=== PATIENT | female | born 1985 | race Caucasian/White ===

== ENCOUNTER 2025-04-08 20:55 | Emergency (ER) | payer BC, SELFPAY ==
[2025-04-08] VITALS (8 sets, daily range): BP systolic 133–176; BP diastolic 81–89; PULSE 62–87; RESP 16–18; TEMP 36.4; O2SAT 96–97; BMI 48.7
--- NOTE | 2025-04-08 21:34 | ED.GENADULT ---
HPI - General Adult General Chief complaint: Chest Pain Stated complaint: Chest pain left side, Cough, shortness of breath Time Seen by Provider: 04/08/25 21:31 History of Present Illness HPI narrative: Pt reports chest pain, started all day today and couple days last week, cough for past 2 months. The chest pain won' t go away. Feels like a panic attack. Pain is located at left heart breast area. Pt has increased SOB when walking. Pt taken two Tylenol pills. No reported trauma. Heating pads help with the chest pain when placed on back . 40-year-old woman presenting to the emergency department with concern of left-sided chest pain. Has had cough for couple months. Reports that she typically gets bronchitis each February except for this year though colleague had at this last February she notes. Chest pain had been on and off over this last week but really settled in over the last day or to. There is a pleuritic nature. It is worse when she lays down. Does report a history of what sounds like a varicose vein that has been ultrasounded negative for clot in the right upper thigh. Experiences jacks for fits of coughing. No productive. It has been more short of breath walking lately. No unusual swelling or pain in legs. Later conversation reports the does struggle with some arthritis I think particularly in her knees. Question of some dietary triggers for this perhaps as well as hives. Frequently with chest symptoms. Related Data Home Medications ?Medication ?Instructions ?Recorded ?Confirmed No Known Home Medications 04/08/25 04/08/25 Allergies Allergy/AdvReac Type Severity Reaction Status Date / Time lidocaine Allergy Intermediate Hives Verified 04/08/25 21:09 Review of Systems Status of ROS: Reports: 6 or more systems reviewed and unremarkable except as noted in History and below Exam Narrative: Exam Narrative: Pleasant. NAD. Skin warm dry. Lower extremities are edema. Or weight. Chest is sore to palpation upper left breast area and the left upper mid axillary line. Lungs are clear. Does cough little bit with some with the respiratory effort. Heart in regular rate and rhythm without murmur rub or gallop. No supraclavicular crepitus. Reproducible pain also to palpation the left periscapular musculature Const: Vital Signs, click to edit/add: Vital Signs - 24 hr 04/08/25 21:01 04/08/25 22:26 04/08/25 22:30 Temperature 97.5 F L Pulse Rate 62 66 Pulse Rate [Left P ulse Oximeter] 87 Respiratory Rate 18 Blood Pressure Blood Pressure [Ri ght Forearm] 176/89 H Pulse Oximetry 97 96 97 Oxygen Delivery Me thod Room Air 04/08/25 22:31 04/08/25 22:32 04/08/25 22:45 Temperature Pulse Rate 67 72 69 Pulse Rate [Left P ulse Oximeter] Respiratory Rate Blood Pressure 140/88 H Blood Pressure [Ri ght Forearm] Pulse Oximetry 97 96 97 Oxygen Delivery Me thod 04/08/25 22:47 04/08/25 23:34 Temperature Pulse Rate 67 Pulse Rate [Left P ulse Oximeter] Respiratory Rate 16 Blood Pressure 133/82 139/81 Blood Pressure [Ri ght Forearm] Pulse Oximetry 97 Oxygen Delivery Me thod Documenting provider has reviewed patient's vital signs: yes Course Vital Signs Vital signs: Initial Vital Signs Temperature 97.5 F L 04/08/25 21:01 Temperature Source Temporal Artery Scan 04/08/25 21:01 Pulse Rate 87 04/08/25 21:01 Pulse Rhythm Regular 04/08/25 21:01 Respiratory Rate 18 04/08/25 21:01 Blood Pressure 176/89 H 04/08/25 21:01 Blood Pressure Mean 118 H 04/08/25 21:01 Blood Pressure Position Sitting 04/08/25 21:01 Pulse Oximetry 97 04/08/25 21:01 Oxygen Delivery Method Room Air 04/08/25 21:01 Vital Signs Temperature 97.5 F L 04/08/25 21:01 Pulse Rate 87 04/08/25 21:01 Respiratory Rate 18 04/08/25 21:01 Blood Pressure 176/89 H 04/08/25 21:01 Pulse Oximetry 97 04/08/25 21:01 Oxygen Delivery Method Room Air 04/08/25 21:01 Temperature 97.5 F L 04/08/25 21:01 Pulse Rate 67 04/08/25 22:47 Respiratory Rate 16 04/08/25 22:47 Blood Pressure 139/81 04/08/25 23:34 Pulse Oximetry 97 04/08/25 22:47 Oxygen Delivery Method Room Air 04/08/25 21:01 Medications Administered Medications: Discontinued Medications Generic Name Dose Route Start Last Admin Trade Name Freq PRN Reason Stop Dose Admin Ketorolac Tromethamine 30 mg 04/08/25 23:43 04/09/25 00:01 Ketorolac 30 Mg/Ml Inj IVP 04/08/25 23:44 30 mg ONCE ONE Administration Medical Decision Making MDM Narrative Medical decision making narrative: No evidence of pericarditis in EKG. Differential also includes pneumonia, pneumothorax, pulmonary embolus, favor costochondritis and/or pleuritis. Doubtful cardiac event. Does not appear to have any arrhythmia. Will monitor. Chest x-ray independently reviewed by me looks to be WNL. Labs are reassuring with D-dimer elevated out of baseline only by 100th. Also essentially normal white count and normal CRP. No events on cardiac monitoring during time in the emergency department. Some improvement I think with ketorolac. Reassuring also I think is reproducibility to palpation of chest wall/back. See patient discharge plan for further discussion Stay well-hydrated Return for increasing and persistent chest pain; especially worsening and persistent shortness of breath. Prescribing prednisone from [facility]. Can be stimulating. Consider keeping a diet diary/journal of everything you eat and drink for a few weeks and seeing if this correlates with a variety of symptoms that you mention today. Perhaps more extensive allergy testing would be helpful. Please be seen if not improved in a week. Giving a handout on stretches for your upper back that might be beneficial. Lab Data Lab results reviewed: Yes I reviewed the patient's lab results Labs: Lab Results 04/08/25 04/08/25 04/08/25 Range/Units 22:20 22:24 22:30 WBC 11.22 H (4.50-11.00) K/uL RBC 4.12 (4.00-5.20) m/uL Hgb 10.2 L (12.0-16.0) gm/dL Hct 33.1 (33.0-51.0) % MCV 80 (80-100) fL MCH 25 L (26-34) pg MCHC 31 L (32-36) gm/dL RDW Coeff of Karl 15.6 H (11.5-15.5) % Plt Count 312 (140-440) K/uL Neut % (Auto) 69.5 (42.0-72.0) % Lymph % (Auto) 22.6 (20-44) % [place] % (Auto) 6.4 (0.0-11.0) % Eos % (Auto) 1.0 (0.0-7.0) % Baso % (Auto) 0.3 (0.0-3.0) % Neut # (Auto) 7.80 H (1.7-7.0) K/uL Lymph # (Auto) 2.50 (0.90-2.90) K/uL [place] # (Auto) 0.70 (0.00-0.90) K/UL Eos # (Auto) 0.10 (0.00-0.50) K/uL Baso # (Auto) 0.00 (0.00-0.30) K/uL Abs Immat Gran (auto) 0.00 (0.00-0.30) K/uL Imm/Tot Granulo (auto) 0.2 % D-Dimer Quant (PE/DVT) 0.51 H (0.00-0.50) ug/ml Sodium 138 (135-149) mmol/L Potassium 4.0 (3.6-5.1) mmol/L Chloride 108 (96-114) mmol/L Carbon Dioxide 25 (20-32) mmol/L Anion Gap 5 L (7-15) mEq/L BUN 17 (5-24) mg/dL Creatinine 0.9 (0.5-1.5) mg/dL Estimated Creat Clear 79.99 Estimated GFR 82 ml/min Glucose 99 (60-115) mg/dL Calcium 8.6 (8.4-10.6) mg/dL Troponin I < 0.01 (0.01-0.04) ng/mL NT-Pro-B Natriuret Pep 76 (See Note) pg/mL POC Troponin I 0.01 (0.01-0.04) ng/ml ECG Data Attestation: I personally reviewed and interpreted this ECG as follows: (Normal sinus rhythm at a rate of 72. No apparent ischemic changes) Discharge Plan Discharge Clinical Impression: Chest wall pain, Pleuritis, Costochondritis, Cough Patient Disposition: Home, Self-Care Condition: Stable Additional Instructions: Stay well-hydrated Return for increasing and persistent chest pain; especially worsening and persistent shortness of breath. Prescribing prednisone from [facility]. Can be stimulating. Consider keeping a diet diary/journal of everything you eat and drink for a few weeks and seeing if this correlates with a variety of symptoms that you mention today. Perhaps more extensive allergy testing would be helpful. Please be seen if not improved in a week. Giving a handout on stretches for your upper back that might be beneficial. Prescriptions: No Action No Known Home Medications Follow Up/Referrals: Provider,Not a Local [Primary Care Provider, Family Practice] Stand Alone Forms: [facility] Info Instructions
--- NOTE | 2025-04-08 22:17 | CRLHL7_ITS ---
For Patients: As a result of the Century Cures Act, medical imaging exams and procedure reports are released immediately into your electronic medical record. You may view this report before your referring provider. If you have questions, please contact your health care provider. INDICATION: Two months of cough, left-sided chest pain. TECHNIQUE: Chest 2 views. COMPARISON: None. FINDINGS: Cardiovascular and mediastinum: Heart size and vasculature are normal in caliber and appearance. Lungs and pleural spaces: No focal consolidation, pleural effusion, or pneumothorax. Bones and soft tissues: Unremarkable for age. IMPRESSION: No evidence of an acute pulmonary process. Dictated by Mikel Dodge MD @ 04/08/2025 11:59:58 PM (Electronically Signed)
--- OUTSIDE RECORDS SUMMARY | 2025-04-08 22:41 | XMS_ITS | Clinical Summary ---
Author Organization [facility] Address [address] [place] [address] Care Team Providers Care Automobile Glass Technician Name Role Phone Elsewhere, Pcp Primary Care Provider Unavailabl e Source Comments Patient records contain information from all sites at [facility]. For routine questions regarding patient records, call [phone] during business hours, M-F 8:00 AM - 5:00 PM Central Time. Record requests for emergency care only can be directed to [phone] at any time.[facility] Allergies Active Allergy Reactions Criticality Noted Date Comments Lidocaine Hcl Hives (Reselect Reaction) 022 Medications * This document contains information received from the source organization and may not represent a complete record from that organization. benzonatate (Tessalon) 200 mg capsule Take 1 capsule (200 mg total) by mouth 3 (three) times a day as needed for cough. 30 capsule 11/02/2024 Active omeprazole (PriLOSEC) [address] capsule TAKE 1 CAPSULE(20 MG) BY MOUTH DAILY BEFORE MORNING MEAL. 30 capsule 11/30/2024 Active Active Problems Problem Noted Date Diagnosed Date Depression Anxiety 11/14/2014 Overview (02/15/2017): Depression Anxiety Polycystic Ovary Syndrome 11/14/2014 Immunizations Immunization Administration Dates Next Due Influenza, Injectable, Quadrivalent 07/31/2015 Td Preservative Free (TENIVAC, DECAVAC) 03/26/20 09 Tdap 05/30/2010 Family History Medical History Relation Name Comments Breast cancer Aunt Maternal and p aternal side. Ovarian cancer Aunt Two aunts wer e diagnosed at the age of 30 and currently 50 years of age Breast cancer Grandmother Paternal side. Ovarian cancer Grandmother Father side Relation Name Status Comments Aunt Grandmother Social History Tobacco Use Types Packs/Day Years Used Date Smoking Tobacco: Never Smokeless Tobacco: Never Tobacco Cessation:Counseling Given: Not Answered Alcohol Use Standard Drinks/Week Comments Not Currently 0 (1 standard drink = 0.6 oz pur e alcohol) rare Comments Unknown Sex and Gender Information Value Date Recorded Sex Assigned at Not on file Legal Sex Female 4:53 PM TERRITORY ACCOUNT MANAGER Gender Identity Not on file Sexual Orientation Not on file Last Filed Vital Signs Vital Sign Reading Time Taken Comments Blood Pressure 160/120 11/08/2024 7:25 PM TERRITORY ACCOUNT MANAGER patient talking to physician, patient is anxious Pulse 100 11/08/2024 7:20 PM TERRITORY ACCOUNT MANAGER Temperature 36.7 C (98.1 F) 11/08/2024 7:20 PM TERRITORY ACCOUNT MANAGER Respiratory Rate 16 11/08/2024 7:20 PM TERRITORY ACCOUNT MANAGER Oxygen Saturation 100% 11/08/2024 7:2 0 PM TERRITORY ACCOUNT MANAGER Inhaled Oxygen Concentration - - Weight 142 kg (312 lb) 11/02/2024 12:40 AM TERRITORY ACCOUNT MANAGER Height 173.7 cm (5' 8.4) 08/18/2022 8: 19 PM TERRITORY ACCOUNT MANAGER Body Mass Index 46.89 08/18/2022 8:19 PM TERRITORY ACCOUNT MANAGER Plan of Treatment Health Maintenance Due Date Last Done Comments HIV Screening 1985 Hepatitis C Screening 1985 Hepatitis B Vaccines (1 of 3 - 19+ 3-dose series) 2003 Cervical/Vaginal Cancer Screening 07/09/2019 07/09/2016 DTaP,Tdap,and Td Vaccines (2 - Td or Tdap) 05/30/2020 05/30/2010, 03/26/2009 COVID-19 Vaccine (1 - 2023-2 5 season) 2024 Depression Screening (Annual PHQ-2) 09/26/2024 Influenza Vaccine (#1) 2025 07/31/2015 Mammogram 08/07/2025 08/07/2024, 08/07/2024 Lipid (Cholesterol) Screening 08/12/2028, 07/09/2016 HPV Vaccines Aged Out No longer eligi ble based on patient's age to complete this topic IPV Vaccines Aged Out No longer eligi ble based on patient's age to complete this topic Pneumococcal vaccine (0-49 years) Aged Out No longer eligible b ased on patient's age to complete this topic Procedures Procedure Name Priority Date/Time Associated Diagnosis Comments LIPID PANEL, S Routine 07/09/2016 11:25 AM CDT PATHOLOGY AUTOMATIC TRANSMISSION MECHANIC CYTOLOGY Routine 07/09/2016 12:00 AM CDT from Last 3 Months or Most Recently Relevant to Health Maintenance Results * (ABNORMAL) Lipid Panel (07/09/2016 11:25 AM CDT) Cholesterol, Total 161 <=199 MGDL POWERCHART Comment: 2014 National Lipid Association recommendations for Total Cholesterol in adults ages 18 and up: Desirable <200 mg/dL Borderline high 200-239 mg/dL High 240 mg/dL 2014 National Lipid Association recommendations for Total Cholesterol in children ages 2 to 17. Acceptable <170 mg/dL Borderline High 170-199 mg/dL High 200 mg/dL HX HDL 52 >=50 MGDL POWERCHART Comment: 2014 National Lipid Association recommendations for HDL-C in adults ages 18 and up: Low <40 mg/dL (Men) Low <50 mg/dL (Women) 2014 National Lipid Association recommendations for HDL-C in children ages 2 to 17. Low <40 mg/dL Borderline Low 40-45 mg/dL Acceptable >45 mg/dL Triglycerides 191(H) <=149 MGDL POWERCHART Comment: 2014 National Lipid Association recommendations for Triglycerides in adults ages 18 and up: Normal <150 mg/dL Borderline High 150-199 mg/dL High 200-499 mg/dL Very High 500 mg/dL 2014 National Lipid Association recommendations for Triglycerides in children ages 2 to 9. Acceptable <75 mg/dL Borderline High 75-99 mg/dL High 100 mg/dL 2014 National Lipid Association recommendations for Triglycerides in children ages 10 to 17. Acceptable <90 mg/dL Borderline High 90-129 mg/dL High 130 mg/dL Trigs >400mg/dL: Triglycerides >400 mg/dL. Calculated LDL cholesterol is not valid. Non-HDL cholesterol may be used for risk assessment when triglycerides are >400mg/dL. Calculated LDL 71 <=129 MGDL POWERCHART Comment: 2014 National Lipid Association recommendations for LDL-C in adults ages 18 and up: Desirable <100 mg/dL Above desirable 100-129 mg/dL Borderline high 130-159 mg/dL High 160-189 mg/dL Very High 190 mg/dL 2014 National Lipid Association recommendations for LDL-C in children ages 2 to 17. Acceptable <110 mg/dL Borderline High 110-129mg/dL High 130 mg/dL LDL-C >190mg/dL: The markedly elevated LDL level is suggestive of a genetic condition such as familial hypercholesterolemia(FH) or familial defective apolipoprotein B-100 (FDB). Molecular genetic testing for FH and FDB is available through [facility] [email or web address]: FH/ADH Genetic Reflex Panel (test ADHP). Acquired (non-genetic) causes of markedly increased LDL cholesterol include cholestatic liver disease due to the presence of LpX. If a genetic form of hypercholesterolemia is suspected, family studies including biochemical testing for lipids (total cholesterol,triglycerides, LDL cholesterol and HDL cholesterol) are recommended. Please contact the laboratory at or the on-line test catalog at [facility] for information about how to order these tests or to speak with a genetic counselor. Further interpretation would require clinical information. Blood 07/09/2016 11:2 5 AM CDT Simeon Iqbal M.D. LAB BLOOD ADD-ON Final Result POWERCHART * Pathology AUTOMATIC TRANSMISSION MECHANIC Cytology (07/09/2016 12:00 AM CDT) 07/09/2016 Narrative [facility] LAB - 07/20/2016 9:03 AM CDT [facility] in [address] [place] [address] Patient Name: SHERRY RICE Collected: 07/09/2016 Address: City/State/Zip: [address] [place] [address] [address] [place], [place] [id number] Received: Reported: 07/12/2016 07/20/2016 Soc. Sec. #: /Age/Sex 1985 (Age: 31) F Physician(s): CELSO IQBAL MD Copy To: [facility] [id number] [address] [place] [address] [address] [place] [address] CYTOPATHOLOGY AUTOMATIC TRANSMISSION MECHANIC REPORT FINAL CYTOLOGIC DIAGNOSIS Pap Smear - ThinPrep: NEGATIVE FOR INTRAEPITHELIAL LESION OR MALIGNANCY ENDOCERVICAL CELLS/COMPONENT PRESENT. SATISFACTORY SPECIMEN FOR EVALUATION. Electronically Signed Out By dls/07/20/2016 [facility](ASCP) The Pap test is a screening procedure and, as such, is subject to both false positive and false negative results as evidenced by published data. It is not a diagnostic test and results should be interpreted in the context of the patient's history and other clinical findings. Obtaining periodic Pap tests may help to minimize the consequences of any false negatives that may occur. SPECIMEN(S) RECEIVED: Pap Smear - ThinPrep CLINICAL HISTORY: Date of Last PAP: UNKNOWN Date of Last Menstrual Period: UNKNOWN Menstrual History: Abnormal spotting Other Clinical Conditions: HPV TYPING REQUESTED: IF ASCUS Simeon Iqbal M.D. LAB PAP COPATH ORDERABLES Final Result [facility] LAB from Last 3 Months or Most Recently Relevant to Health Maintenance Insurance [facility] Address: [address] [place] [address] Care Teams Automobile Glass Technician Relationship Specialty Start Date End Date Elsewhere, Pcp PCP - General Internal Medicine 01/16/20
--- OUTSIDE RECORDS SUMMARY | 2025-04-08 22:41 | XMS_ITS | Clinical Summary ---
Author Organization [facility] Address [address] [place] [address] Care Team Providers Care Proc Tech Name Role Phone Mavis Lynn MD Primary Care P rovider Allergies Active Allergy Reactions Criticality Noted Date Comments Lidocaine Hives High 08/18/2022 Medications omeprazole (PRILOSEC) 20 mg Delayed-Releas e capsule Take 20 mg by mouth once daily before a meal. 5 Active ibuprofen (ADVIL; MOTRIN) 600 mg tabletIndicati ons:Scalp cyst Take 1 Tablet (600 mg) by mouth every 6 hours if needed for Pain. Maximum of 3200 mg in 24 hours. 30 Tablet 11/14/2024 12:59 PM SENIOR SALES OPERATIONS ANALYST 5 Active acetaminophen (TYLENOL) 325 mg tabletIndicati ons:Scalp cyst Take 2 Tablets (650 mg) by mouth every 6 hours if needed for Pain. Max acetaminophen dose: 4000mg in 24 hrs. 30 Tablet 11/14/2024 12:59 PM SENIOR SALES OPERATIONS ANALYST 5 Active Active Problems Problem Noted Date Diagnosed Date Scalp cyst 11/14/2024 Encounters Date Type Department Care Team Description 04/08/2025 Nurse Triage [facility] [[email or web address] [address] [facility] [address] [place] [address] Mavis Lynn MD Chest Pain 04/03/2025 Telephone [facility] [address] [place] [address] Team, Ez Rn Red Possible Triage from Last 3 Months Immunizations Immunization Administration Dates Next Due Influenza, IIV4 (=>6mos) MDV 07/31/2015 Td, Preservative Free (age >= 7 Years) 9 Tdap 05/30/2010 Family History Medical History Relation Name Comments Cancer-ovarian Paternal Grandmother Relation Name Status Comments Paternal Grandmother Social History Tobacco Use Types Packs/Day Years Used Date Smoking Tobacco: Never Smokeless Tobacco: Never Tobacco Cessation:Counseling Given: Yes Alcohol Use Standard Drinks/Week Comments Not Currently 0 (1 standard drink = 0.6 oz pur e alcohol) PHQ-2 Answer Date Recorded PHQ-2 Score 2 04/05/2019 Comments No Sex and Gender Information Value Date Recorded Sex Assigned at Female 11/09/2023 10:47 AM SENIOR SALES OPERATIONS ANALYST Legal Sex Female 7:09 AM SENIOR SALES OPERATIONS ANALYST Gender Identity Female 11/09/2023 10:47 AM SENIOR SALES OPERATIONS ANALYST Sexual Orientation Straight 11/09/2023 10 :47 AM SENIOR SALES OPERATIONS ANALYST Obstetrics History Last Filed Vital Signs Vital Sign Reading Time Taken Comments Blood Pressure 124/70 01/03/2025 7:55 AM CDT Pulse 70 01/03/2025 7:55 AM CDT Temperature 35.6 C (96 F) 11/14/2024 12:53 PM SENIOR SALES OPERATIONS ANALYST Respiratory Rate 12 11/14/2024 1:32 PM SENIOR SALES OPERATIONS ANALYST Oxygen Saturation 91% 11/14/2024 1:32 PM SENIOR SALES OPERATIONS ANALYST Inhaled Oxygen Concentration - - Weight 142.7 kg (314 lb 9.6 oz) 01/03/2025 7:55 AM CDT Height 167.6 cm (5' 5.98) 01/03/2025 7:55 AM CD T Body Mass Index 50.8 01/03/2025 7:55 AM CDT Plan of Treatment Upcoming Encounters Date Type Department Care Team (Late st Contact Info) Description 04/12/2025 9:00 AM CDT Office Visit [facility] [address] [place] [address] Aziza Mendoza MD [address] [place] [address] Health Maintenance Due Date Last Done Comments Hepatitis B series for 19+ (1 of 3 - 19+ 3-dose series) 2003 Pap test for age 21-65 07/09/2019 6 (Completed outside of [facility]) Depression screening for age 12+ 04/05/2020 04/05/2019, 04/05/2019 Tetanus booster 05/30/2020 05/30/2010, 03/26/2009 COVID-19 vaccine series ( - 2023-25 season) 2024 Influenza Vaccine (#1) 2025 07/31/2015 BMI (ht and wt on same day) for age 18+ 01/03/2026 01/03/2025, 11/26/2024, 11/14/2024, Additional history exists HIV for age 15-65 Completed 08/12/2023 Hepatitis C screening for age 18-79 Completed 08/12/2023 Pneumococcal series for age 6-49 Aged Out No longer eligible based on patient's age to complete this topic Procedures Procedure Name Priority Date/Time Associated Diagnosis Comments ANTI HIV 1/2 Routine 08/12/2023 12:39 PM SENIOR SALES OPERATIONS ANALYST Screening for HIV (human immunodeficiency virus) ANTI HCV Routine 08/12/2023 12:39 PM SENIOR SALES OPERATIONS ANALYST Need for hepatitis C screening test from Last 3 Months or Most Recently Relevant to Health Maintenance Results * ANTI HCV (08/12/2023 12:39 PM SENIOR SALES OPERATIONS ANALYST) HEPATITIS C ANTIBODY Non-Reacti ve Non-React evan 08/12/2023 8:45 PM SENIOR SALES OPERATIONS ANALYST [facility] Comment:Please note, per www .CDC.gov: If a patient is known to be at high risk of HCV infection, or is symptomatic, and the physician's suspicion of HCV infection is high, HCV RNA testing is often employed and is of diagnostic value, even after an initial negative anti-HCV test result. Blood BLOOD SPECIMEN / Unknown Butterfly / Unknown 08/12/2023 12:39 PM SENIOR SALES OPERATIONS ANALYST 08/12/2023 12:39 PM SENIOR SALES OPERATIONS ANALYST Mavis Griggs MD SEND OUTS Final Result [facility] [address] [place] [address], [place] * ANTI HIV 1/2 [28953.0] (08/12/2023 12:39 PM SENIOR SALES OPERATIONS ANALYST) HIV-1/HIV-2 SCREEN Non-Reacti ve Non-Reacti ve 08/12/2023 8:54 PM SENIOR SALES OPERATIONS ANALYST [facility] Comment:HIV-1 p24 and HIV-1/ HIV-2 Ab Not Detected. Blood BLOOD SPECIMEN / Unknown Butterfly / Unknown 08/12/2023 12:39 PM SENIOR SALES OPERATIONS ANALYST 08/12/2023 12:39 PM SENIOR SALES OPERATIONS ANALYST us Mavis Griggs MD SEND OUTS Final Result Performing Organization Address City/[facility]/ZIP Co de Phone Number [facility] [address] [place] [address], [place] from Last 3 Months or Most Recently Relevant to Health Maintenance Insurance [facility] [employer] INS [id number] [facility] [place] [id number] Advance Directives * Full Code (Latest Code Status on File) Date Activated Date Inactivated Comments 11/14/2024 9:45 AM 11/14/2024 4:08 PM Question Answer Comments Code Status Discussion: Reviewed Preferences Care Teams Proc Tech Relationship Specialty Start Date End Date Mavis Lynn MD [address] [address] [place] [id number] PCP - General Family Practice 11/28/23
[2025-04-08 22:47] LABS: Chloride* 108 mmol/L (96-114); Sodium* 138 mmol/L (135-149)
[2025-04-08 22:48] LABS: Potassium* 4.0 mmol/L (3.6-5.1)
[2025-04-08 22:50] LABS: Blood Urea Nitrogen* 17 mg/dL (5-24); Creatinine* 0.9 mg/dL (0.5-1.5); Est. Creatinine Clearance* 79.99; Estimated Glomerular Filt Rate 82 ml/min
[2025-04-08 22:51] LABS: Anion Gap 5 mEq/L (7-15); Calcium* 8.6 mg/dL (8.4-10.6); Carbon Dioxide* 25 mmol/L (20-32); Glucose* 99 mg/dL (60-115)
[2025-04-08 22:52] LABS: Hematocrit* 33.1 % (33.0-51.0); Hemoglobin* 10.2 gm/dL (12.0-16.0); Immature Granulocytes Pct Auto 0.2 %; Mean Corpuscular HGB Conc 31 gm/dL (32-36); Mean Corpuscular Hemoglobin 25 pg (26-34); Mean Corpuscular Volume 80 fL (80-100); RDW Coefficient of Variation % 15.6 % (11.5-15.5); Red Blood Count* 4.12 m/uL (4.00-5.20); White Blood Count* 11.22 K/uL (4.50-11.00)
[2025-04-08 23:01] LABS: NT Pro B Type NatriureticPept* 76 pg/mL (See Note)
[2025-04-08 23:01] LABS: Immature Granulocytes Abs Auto 0.00 K/uL (0.00-0.30); Lymphocytes Absolute Auto 2.50 K/uL (0.90-2.90); Slide Review Reflex No
[2025-04-08 23:02] LABS: Troponin, Point-of-Care* 0.01 ng/ml (0.01-0.04)
[2025-04-08 23:24] LABS: D Dimer Quantitative* 0.51 ug/ml (0.00-0.50)
== END 2025-04-09 01:22 | disposition home or self-care (01) ==
PROVIDERS: Emergency Provider Family Medicine
DX: R07.9 Chest pain, unspecified (principal); M94.0 Chondrocostal junction syndrome [Tietze]; R09.1 Pleurisy; R05.9 Cough, unspecified
CPT/HCPCS: 36415; 71046; 80048; 83880; 84484; 85025; 85379; 96374; 99284; J1885